=== PATIENT | male | born 1950 | race Caucasian/White ===

== ENCOUNTER 2020-02-04 14:19 | Outpatient (CLI) | payer MEDICARE, SELFPAY ==
--- NOTE | ~2020-02-04 | CT_ITS ---
EXAMINATION: CT lumbar spine wo con DATE: 02/04/2020 14:38 INDICATION: Low back pain. TECHNIQUE: Computed tomography (CT) of the lumbar spine was performed without intravenous contrast. A utomated exposure control and iterative reconstruction technique were employed. The dose-length produ ct was 445.69 mGy-cm. COMPARISON: Lumbar spine radiographs 01/30/2020 FINDINGS: Partially visualized are cysts in the kidneys measuring up to 2.2 cm on the left. Alignment is normal. Vertebral body heights are normal. There is moderately decreased disc height at L5-S1. Th e following disc levels are specifically discussed: L1-L2: The disc does not extend beyond the endplate margin. There is mild bilateral facet joint osteo arthritis. There is no neural foraminal stenosis. There is no central canal stenosis. L2-L3: The disc does not extend beyond the endplate margin. There is moderate bilateral facet joint o steoarthritis. There is no neural foraminal stenosis. There is no central canal stenosis. L3-L4: The disc is bulging. There is mild right and moderate left facet joint osteoarthritis. There i s mild bilateral neural foraminal stenosis. There is mild central canal stenosis. L4-L5: The disc is bulging. There is severe right and moderate left facet joint osteoarthritis. There is mild bilateral neural foraminal stenosis. There is mild central canal stenosis. L5-S1: The disc is bulging. There is moderate bilateral facet joint osteoarthritis. There is mild rig ht and moderate left neural foraminal stenosis. There is mild central canal stenosis. IMPRESSION: 1. Moderate lumbar spondylosis. Reviewed, dictated and finalized at location E.
== END 2020-02-04 14:20 | disposition home or self-care (01) ==
PROVIDERS: PCP Internal Medicine; Visit Provider Orthopaedic Surgery
DX: M54.5 Low back pain (principal); M47.816 Spondylosis without myelopathy or radiculopathy, lumbar region
CPT/HCPCS: 72131

== ENCOUNTER 2024-10-11 01:24 | Day surgery (SDC) | payer MEDICARE, SELFPAY ==
[2024-09-27 14:39] VITALS: BMI 25.0
--- NOTE | 2024-10-10 15:02 | P.PNAN_ITS ---
Anes - Initial Pre Proc Eval Procedure: Operation Date: 10/11/24 09:30 Proposed Procedures p Screening Colonoscopy - Colin Marinelli MD Date/Time: 10/10/24 15:02 Surgeon: Colin Marinelli MD Pre Op Diagnosis: personal hx colon polyps Patient Data Age: 74 Gender: M Height: 1.7 m Weight: 72.6 kg Allergies Allergy/AdvReac Type Severity Reaction Status Date / Time No Known Allergies Allergy Verified 10/11/24 08:18 Home Medications ?Medication ?Instructions ?Recorded ?Confirmed ?Type citalopram 20 mg tablet 20 mg PO DAILY 01/30/20 10/11/24 History rosuvastatin 20 mg tablet 20 mg PO DAILY 01/30/20 10/11/24 History acetaminophen 650 mg 650 mg PO Q12H 02/13/20 10/11/24 History tablet,extended release (Tylenol Arthritis Pain) Patient hx anesthesia problems: none Family hx anesthesia problems: none Results Review: All pre-operative results and documents have been reviewed as part of the pre- operative evaluation. [facility] Past Medical History Medical History (Updated 10/10/24 @ 15:03 by Balta Gasca DO) Anxiety Hyperlipidemia Surgical History Surgical History H/O knee surgery 1997 and 2008 [place] - waiting on records for details Family History Family History Father Cancer Social History Social History (Updated 10/11/24 @ 08:53 by Balta Gasca DO) Smoking packs per day: 1 Smoking cigarettes per day: 20.0 Years smoked: 30 Smoking pack-years: 30.00 Smoking status: Former smoker Tobacco type: cigarettes Additional smoking assessment comments: quit 35 years ago Alcohol intake: never Alcohol use details: occasional Substance use: never Substance use type: does not use Living arrangements: with family Additional living arrangements comments: , helen Occupation/Education: retired Gender identity (if verbalized by the patient): Male Spiritual care concerns: No Anes - Eval Final PreProcedure Day of Procedure 10/10/24 15:02 Patient weight: overweight Heart: regular rate and rhythm Lungs: clear to auscultation Airway: Mallampati scale class II Neurological: alert and oriented Last oral intake: >/= 8 hours ASA classification: II Emergent: no Anesthetic plan: proceed Anesthesia type and monitoring: general GIVS and standard monitoring Results Review: All pre-operative results and documents have been reviewed as part of the pre- operative evaluation. Informed Consent: The patient's anesthetic plan and its attendant risks and benefits were discussed with the patient/family/POA. Questions were solicited and answers provided to the satisfaction of the patient/family/POA.
[2024-10-11 08:19] VITALS: BP 147/79; PULSE 71; RESP 18; TEMP 36.4; O2SAT 99; BMI 24.5
[2024-10-11] MEDS: LACTATED RINGERS 1,000 ML 150 ML IV CONT (08:28)
--- NOTE | 2024-10-11 09:43 | PM.IMHP ---
H&P: HPI History of Present Illness Date/Time: 10/11/24 09:43 Chief Complaint: History of colon polyps Narrative: The patient has a history of colonic polyps, the last colonoscopy was 5 years ago. in addition, his father had colorectal cancer at age 70. Review of Systems Review of Systems: All systems reviewed & are unremarkable except as noted in HPI and below PMFSH Past Medical History Medical History (Updated 10/11/24 @ 09:44 by Colin Marinelli MD) Anxiety Hyperlipidemia Surgical History Surgical History H/O knee surgery 1997 and 2008 [place] - waiting on records for details Family History Family History Father Cancer Social History Social History (Updated 10/11/24 @ 08:53 by Balta Gasca, ) Smoking packs per day: 1 Smoking cigarettes per day: 20.0 Years smoked: 30 Smoking pack-years: 30.00 Smoking status: Former smoker Tobacco type: cigarettes Additional smoking assessment comments: quit 35 years ago Alcohol intake: never Alcohol use details: occasional Substance use: never Substance use type: does not use Living arrangements: with family Additional living arrangements comments: , [place] Occupation/Education: retired Gender identity (if verbalized by the patient): Male Spiritual care concerns: No Meds Home Medications and Allergies Home Medications ?Medication ?Instructions ?Recorded ?Confirmed ?Type citalopram 20 mg tablet 20 mg PO DAILY 01/30/20 10/11/24 History rosuvastatin 20 mg tablet 20 mg PO DAILY 01/30/20 10/11/24 History acetaminophen 650 mg 650 mg PO Q12H 02/13/20 10/11/24 History tablet,extended release (Tylenol Arthritis Pain) Allergies Allergy/AdvReac Type Severity Reaction Status Date / Time No Known Allergies Allergy Verified 10/11/24 08:18 Vital Signs Vital Signs - 24 hr 10/11/24 08:19 Temperature 97.6 F Pulse Rate 71 Respiratory Rate 18 Blood Pressure 147/79 H Pulse Oximetry 99 Oxygen Delivery Room Air Exam Const: General: cooperative and healthy appearing Resp: Effort & Inspection: normal respiratory effort and able to speak in complete sentences Auscultation: clear to auscultation bilaterally Cardio: Rate: regular rate Rhythm: regular rhythm GI: Inspection: normal to inspection GI Palp: No No hepatosplenomegaly present Auscultation: normal bowel sounds Rectal Exam: deferred Skin: General skin exam: normal color Psych: Appearance: grossly normal Mental Status: mental status grossly normal Assessment and Plan Assessment and plan (1) History of colonic polyps: Code(s): Z86.0100 - Personal history of colon polyps, unspecified Status: Acute (2) Family history of colon cancer: Code(s): Z80.0 - Family history of malignant neoplasm of digestive organs Status: Acute Assessment and Plan: The patient is deemed a good candidate for the procedure. Consent signed. Will proceed.
[2024-10-11 10:01] VITALS: BP 113/66; PULSE 62; RESP 15; O2SAT 97
[2024-10-11 10:11] VITALS: BP 120/78; PULSE 61; RESP 21; O2SAT 99
[2024-10-11 10:21] VITALS: BP 140/86; PULSE 61; RESP 18; O2SAT 100
--- OUTSIDE RECORDS SUMMARY | 2024-10-12 03:46 | XMS_ITS | Data Portability ---
Author Organization [facility], Main Office Address [address] [place] [address] Care Team Providers Care Therapeutic Consultant Name Role Phone ALY STARKEY Primary Care Provider Assessment Encounter Date Assessment Date Assessment LastModified by Organization Details LastModified Time 11/18/2022 11/18/2022 Tzsn-rym-kvgqckt medicines for his rhinitis Rosuvastatin and diet Citalopram continue Follow-up in 6 months Blood work ordered [email or web address] Not available 12/26/2022 16:17:28 06/09/2023 06/09/2023 Continue current therapy wellness completed screenings discussed ordered and immunizations were appropriate patient follow-up 6 months continue [email or web address] Not available 06/09/2023 22:48:29 Plan of Treatment Reminders Order Date Submit Date Provider Last Modified By Organization Details Last Modified Time Details Appointments None recorded. Lab PSA, serum or plasma 2022 023 [facility], [address] [facility], [facility] [address], [place], [address], 3 08:50:20 CMP, serum or plasma 2022 023 [facility], [address] [facility], [address], [place], [address], 3 08:50:19 lipid panel, serum 2022 023 [facility], [address] [facility], [address], [place], [address], 3 08:50:19 Referral None recorded. Procedures None recorded. Surgeries None recorded. Imaging None recorded. Medication Orders citalopram 20 mg tablet 2022 023 [email or web address] [id number], [address], [place], [place], [id number], 18:04:39 rosuvastati n 20 mg tablet 2022 023 [email or web address] [facility] #[id number], [address], [place], [place], [id number], 18:04:39 Patient TargetsNo targets recorded. Patient Instructions Encounter Date Encounter Id Patient Instructions Last Modified By Organization Details Last Modified Time 06/09/2023 [id number] dementia rating scale-2* [email or web address] Not available 06/09/2023 22:48:52 depression screening* Not available 06/09/2023 22:48:52 alcohol misuse* Not available 06/09/2023 22:48:52 multi-dimensiona l health assessment questionnaire* Not available 06/09/2023 22:48:52 Personalized [facility] lth Plan and Screening Recommendations Advance Directives - Do you have one? Yes Advance Directives - Do we have your advance directive on file in your health record? Primary Prevention/Interven tion (prevents or decreases the chance of common diseases from occurring) Smoking Risk: Non Smoker Alcohol Misuse Screening: Negative Weight: Appropriate Physical activity: Appropriate physical activity Nutrition: Good Average Refer to attached handout Heart-Healthy Diet: After Your Visit Fall Risk (screened today): Low Vaccines Pneumococcal: Ordered Recommended today Influenza: Chronic Disease Risks Stroke: Low Risk Intermediate Risk Heart Attack: Low risk Intermediate Risk Clogging of the Arteries: Low risk Intermediate Risk Diabetes: Low Risk I have no recommendations Secondary Prevention/Interven tion (detects treatable diseases before they may cause symptoms, disability, or ) Prostate Cancer Screening: Colon Cancer Screening: Colonoscopy Date Screening Last Performed: 09/05/19 with repeat recommendation for 5 years Eye Disease Screening: Dementia Risk: Low I have no recommendations Depression Screening: Negative Not available 06/09/2023 14:52:19 Reason for Referral None Reported. Results Created Date Observation Date Name Description Value Unit Range Abnormal Flag Note LastModifiedBy Organization Detail LastModifiedTime 11/20/19 XR, lumba r spine [facility] [address] [place] [address] [phone] Shayna cheney Name: MALACHI MORSE Access ion #: [id number] Sex: M : 1949 6 Locati on: RA2 Attend ing Physic audrey: GEOVANNI STARKEY Orderi Physic audrey: GEOVANNI STARKEY Exam Date: 11/20/19 1:31 PM Exam Name: XR L SPINE 4V+ Admitt ing Diagno sis(es ): RADIOL OGY REPORT - FINAL EXAM: XR L SPINE 4V+ HISTOR Y: LBP COMPAR OBINNA: None availa ble. TECHNI QUE: AP, bilate ral obliqu e's, latera l, and coned latera l views of the lumbar sacral juncti on. FINDIN GS: Examin ation of the lumbar spine demons trates multip le multil evel degene rative change s throug hout the lumbar spine. Mild sclero sis of the right greate r than left SI joint correl ate for histor y of sacroi liitis . 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 Bony pedicl es appear intact . There is no radiog raphic eviden ce of spondy lolysi s Page 1 of 2 [facility] Shayna cheney Name: MALACHI MORSE Access ion #: [id number] Sex: M : 1949 4 Exam Date: 11/20/19 1:31 PM Exam Name: XR L SPINE 4V+ Admitt ing Diagno sis(es ): or spondy lolist hesis. The sacral iliac joints appear normal . There is no fractu re or bone destru ction identi fied. If clinic al sympto ms persis t, MRI examin ation could be consid ered. IMPRES ROSEANN: No acute proces s, see above. Create d and electr onical ly signed by: Neymar mandujano MD Signed Date: 11/20/19 1:56 PM (CT) Dictat ed by: Neymar mandujano MD (CT) (CT) Page 2 of 2 [id number] [facility] (Imaging) [address] [place], [address], 11/17/2022 06:08:16 Result Notes None recorded. Problems Name Problem SNOMED Code Status Onset Date Resolution Date Notes Provider Name and Address Organization Details Recorded Time Renewal of prescription Active 2021 Not Available [facility] 3 06:01:56 Hypercholeste rolemia 35667425 Active 2018 Not Available [facility] 3 06:01:56 Long-term drug therapy Active 2021 Not Available [facility] 3 06:01:57 Adult health examination Active 2021 Not Available [facility] 3 06:01:57 Low back pain 407348536 Active 2021 Not Available [facility] 3 06:01:57 Screening for disorder Active 2021 Not Available [facility] 3 06:01:57 Anxiety 70559377 Active 2018 Not Available [facility] 3 06:01:57 Problem Notes None recorded. Procedures Surgical History Date Name Laterality Status Provider Name and Address Organization Details Recorded Time 06/09/20 Medicare Wellness CPT Code, subsequent completed Jasmyne Naidu RN [facility] 06/09/2023 14:44:50 05/12/20 excision of squamous cell carcinoma completed Not Available [facility] 11/17/2022 05:56:43 09/05/20 19 Colonoscopy completed Not Available [facility] 11/18/19 05:56:43 repair of meniscus completed Not Available [facility] 11/17/2022 05:56:43 repair of meniscus completed Not Available [facility] 11/17/2022 05:56:43 Imaging Results Imaging Date Name Status LastModified by Organiz [facility] Details LastModified Time 11/19/2021 XR, lumbar spine completed [id number] [facility] (Imaging) [address], [place], [address], 11/17/2022 06:08:16 Procedure Notes None recorded. Medical Equipment None Reported. Allergies No known drug allergies Medications Name Sig Start Date Stop Date Status Note LastModified by Organization Details LastModified Time azithromyci n 250 mg tablet 01/09 completed Not Available Not Available Not Available Tylenol Arthritis Pain 650 mg tablet,exte nded release 2019 active Not Available Not Available Not Avai lable citalopram 20 mg tablet TAKE 1 TABLET BY MOUTH EVERY DAY 2022 active Not Available Not Available Not Avai lable pravastatin 80 mg tablet Take 1 tablet every day by oral route for 90 days. 07/30 completed Not Available Not Available Not Available benzonatate 100 mg capsule TAKE 1 CAPSULE EVERY 8 HOURS FOR 10 DAYS 01/09 completed Not Available Not Available Not Available hydrocortis one 2.5 % topical cream 11/18 completed Not Available Not Available Not Available codeine 10 mg-guaifene sin 100 mg/5 mL oral liquid TAKE 1 OR 2 TEASPOONF ULS BY MOUTH TWICE DAILY NEEDED 01/09 completed Not Available Not Available Not Available amoxicillin 875 mg-potassiu m clavulanate 125 mg tablet 01/09 completed Not Available Not Available Not Available rosuvastati n 20 mg tablet TAKE 1 TABLET BY MOUTH EVERY DAY 2022 active Not Available Not Available Not Avai lable ProAir HFA 90 mcg/actuati on aerosol inhaler active Not Available Not Available Not Available Suprep Bowel Prep Kit 17.5 gram-3.13 gram-1.6 gram oral solution TAKE DIRECTED ON PACKAGE 04/24 completed Not Available Not Available Not Available Fluzone High-Dose 0662-2507 (PF) 180 mcg/0.5 mL intramuscul ar syringe 01/09 completed Not Available Not Available Not Available Fluzone High-Dose (PF) 180 mcg/0.5 mL intramuscul ar syringe 07/17 completed Not Available Not Available Not Available Fluzone High-Dose Quad 2019- (PF) 240 mcg/0.7 mL IM syringe 10/23 completed Not Available Not Available Not Available Vitals Date Recorded Body mass index (BMI) Body height Heart rate Body temperature Body weight Systolic blood pressure Diastolic blood pressure Provider Name and Address Organization Details Last Updated DateTime 1 24.9 kg/m2 170.18 cm 72 /min 97.5 [degF] 34517.1 9 g 120 mm[Hg] 64 mm[Hg] Not Available [facility] 3 06:00:55 Date Recorded Body mass index (BMI) Body height Heart rate Body temperature Body weight Systolic blood pressure Diastolic blood pressure Provider Name and Address Organization Details Last Updated DateTime 2 25.1 kg/m2 170.18 cm 72 /min 97.3 [degF] 28694.7 8 g 130 mm[Hg] 62 mm[Hg] Not Available [facility] 3 06:00:55 Date Recorded Body mass index (BMI) Body height Heart rate Body temperature Body weight Systolic blood pressure Diastolic blood pressure Provider Name and Address Organization Details Last Updated DateTime 2 24.6 kg/m2 170.18 cm 71 /min 98 [degF] 22535 g 122 mm[Hg] 68 mm[Hg] Not Available [facility] 3 06:00:56 Date Recorded Body height Body mass index (BMI) Body weight Body temperature Heart rate Systolic blood pressure Diastolic blood pressure Provider Name and Address Organization Details Last Updated DateTime 3 170.18 cm 25.4 kg/m2 81171.9 6 g 98.5 [degF] 66 /min 130 mm[Hg] 78 mm[Hg] [facility] 3 14:06:36 Date Recorded Body height Body mass index (BMI) Body weight Body temperature Heart rate Systolic blood pressure Diastolic blood pressure Provider Name and Address Organization Details Last Updated DateTime 3 170.18 cm 24.6 kg/m2 33027 g 98.5 [degF] 72 /min 128 mm[Hg] 70 mm[Hg] [facility] [employer] [facility] 3 14:36:09 Social History Question Answer Notes LastModified by Organization Details LastModified Time Tobacco Smoking Status Former Smoker quit age 38 Not Available [facility] 11/17/2022 05:56:23 Do You Have An Advance Directive? Yes MIGRATION.030 [id number] Information not available 11/17/2022 What Is Your Level Of Alcohol Consumption? Occasional MIGRATION.030 323348 Information not available 11/17/2022 Are You Blind Or Do You Have Difficulty Seeing? No MIGRATION.030 152708 Information not available 11/17/2022 What Is Your Level Of Caffeine Consumption? Moderate MIGRATION.030 286754 Information not available 11/17/2022 In The 14 Days Before Symptom Onset, Have You Had Close Contact With A Laboratory-confi rmed COVID-19 While That Case Was Ill? No MIGRATION.030 018243 Information not available 11/17/2022 In The 14 Days Before Symptom Onset, Have You Had Close Contact With A Person Who Is Under Investigation For COVID-19 While That Person Was Ill? No MIGRATION.030 382593 Information not available 11/17/2022 Are You Currently Employed? No Retired Information not available 11/18/2022 Are You Deaf Or Do You Have Serious Difficulty Hearing? No MIGRATION.030 774099 Information not available 11/17/2022 What Type Of Diet Are You Following? REGULAR MIGRATION.030 494494 Information not available 11/17/2022 What Is The Highest Grade Or Level Of School You Have Completed Or The Highest Degree You Have Received? [id number] MIGRATION.300026 Information not available 11/17/2022 Have There Been Any Changes To Your Family Or Social Situation? No MIGRATION.030 543215 Information not available 11/17/2022 What Is The Fluoride Status Of Your Home? Unknown MIGRATION.030 689847 Information not available 11/17/2022 When Did You Quit Smoking? 14+yearssincelastc igarette MIGRATION.030 334290 Information not available 11/17/2022 Are There Any Guns Present In Your Home? No MIGRATION.030 935852 Information not available 11/17/2022 Do You Use Insect Repellent Routinely? Yes Information not available 06/09/2023 Where Do You Live? SingleLevelHouse MIGRATION.030 568645 Information not available 11/17/2022 Presence Of Domestic Violence No Information not available 06/09/2023 Guns Present In The Home? No Information not available 06/09/2023 Are You Able To Care For Yourself? Yes Information not available 06/09/2023 Are You Blind Or Do Yo Have Difficulty Seeing? No Information not available 06/09/2023 Are You Deaf Or Do You Have Serious Difficulty Hearing? No Information not available 06/09/2023 General Stress Level? Low Information not available 06/09/2023 Live Alone Of With Others? With Others [email or web address] Information not available 06/09/2023 Do You Have A Medical Power Of Health Technician Hearing? Yes MIGRATION.0301 [id number] Information not available 11/17/2022 What Was The Date Of Your Most Recent Tobacco Screening? 06/09/2023 Information not available 06/09/2023 Have You Ever Been Counseled For Unhealthy Alcohol Use? No MIGRATION.0301 621582 Information not available 11/17/2022 Do You Have Any Pets? Yes MIGRATION.0301 960746 Information not available 11/17/2022 What Is Your Relationship Status? MIGRATION.0301 474329 Information not available 11/17/2022 Do You Use Your Seat Belt Or Car Seat Routinely? Yes MIGRATION.0301 574074 Information not available 11/17/2022 Do You Have Smoke And Carbon Monoxide Detectors In Your Home? Yes MIGRATION.0301 537776 Information not available 11/17/2022 Are You Passively Exposed To Smoke? No MIGRATION.0301 499002 Information not available 11/17/2022 Are There Any Smokers In Your House? No MIGRATION.0301 918469 Information not available 11/17/2022 What Types Of Sporting Activities Do You Participate In? Golf MIGRATION.0301 588625 Information not available 11/17/2022 Do You Feel Stressed (tense, Restless, Nervous, Or Anxious, Or Unable To Sleep At Night)? IX3638-5 MIGRATION.0301 087892 Information not available 11/17/2022 Do You Use Any Illicit Or Recreational Drugs? No MIGRATION.0301 049176 Information not available 11/17/2022 Do You Use Sunscreen Routinely? Yes MIGRATION.0301 258506 Information not available 11/17/2022 Has Tobacco Cessation Counseling Been Provided? No MIGRATION.0301 502398 Information not available 11/17/2022 Have You Recently Traveled Abroad? No MIGRATION.0301 730426 Information not available 11/17/2022 Do You Have Any Dietary Restrictions? No MIGRATION.0301 815299 Information not available 11/17/2022 Do You Or Have You Ever Used Any Other Forms Of Tobacco Or Nicotine? No MIGRATION.0301 489251 Information not available 11/17/2022 Sex: Male Functional Status Question Answer Note LastModified by Organizat [employer] Details LastModified Time Do you have difficulty walking or climbing stairs? No MIGRATION.2287405 026 Information not available 11/17/2022 Do you have transportation difficulties? No MIGRATION.3127414 026 Information not available 11/17/2022 Are you able to walk? YESWOREST MIGRATION.6001677 026 Information not available 11/17/2022 Do you have difficulty doing errands alone? No MIGRATION.7458180 026 Information not available 11/17/2022 Are you able to care for yourself? Yes MIGRATION.9916660 026 Information not available 11/17/2022 Do you have difficulty dressing or bathing? No MIGRATION.2829428 026 Information not available 11/17/2022 What is your exercise level? Moderate MIGRATION.0513255 026 Information not available 11/17/2022 Mental Status Question Answer Note LastModified by Organizat ion Details LastModified Time Do you have difficulty concentrating, remembering or making decisions? No MIGRATION.[id number] 6 Information not available 11/17/2022 Family History Relationship Description Onset Age of this Age Resolved Age Notes LastModified by Organization Details LastModified Time Father Alzheimer's disease MIGRATION.663 [id number] Not available 11/17/2022 05:56:47 Father Malignant tumor of colon MIGRATION.246 [id number] Not available 11/17/2022 05:56:47 Medical History Condition Response BLINDNESS N NERVE DISEASE N RHEUMATIC FEVER N BLADDER PROBLEMS N KIDNEY STONES N MRSA N OTHER # 1 N POLIO N LUNG DISEASE/DISORDER N HISTORY OF DRUG ABUSE N RADIATION / CHEMOTHERAPY N COPD N Other # 2 N BLOOD DISEASES N EAR OR HEARING PROBLEMS N MUMPS N SHINGLES N DEPRESSION (INCLUDING POST ) N BOWEL PROBLEMS N STROKE/TIA N ULCERS N BENIGN PROSTATIC HYPERPLASIA N MEASLES N HYPOTENSION N MYOCARDIAL INFARCTION N OBESITY N GERD/NAUSEA N ANEURYSM N URINARY/BLADDER/KIDNEY PROBLEMS N CORONARY ARTERY DISEASE (CAD) N ADDICTION CONCERNS N ENDOMETRIOSIS N Impotence N USE OF BLOOD THINNERS N SKIN PROBLEMS N GASTROINTESTINAL DISORDER N PERIPHERAL VASCULAR DISEASE N MUSCLE,JOINT OR BONE PROBLEMS N GASTROINTESTINAL BLEEDING N BLOOD CLOTS N ASTHMA N CATARACTS N ERECTILE DYSFUNCTION N VARICOSITIES N GI PROBLEMS N Low Testosterone N INFERTILITY N AIDS/HIV N CHEMOTHERAPY / RADIATION N LIVER DISEASE N MALE HYPOGONADISM N HYPERTENSION N Deficiency N TOURETTE'S N ANXIETY DISORDER Y BLOOD TRANSFUSION N ANEMIA/BLOOD DISORDER N CHRONIC EAR INFECTIONS N BRONCHITIS N TUBERCULOSIS N GLAUCOMA N FOOT PROBLEM N DIVERTICULITIS N CHICKENPOX N SLEEP APNEA N INFECTIOUS DISEASE N HEART ARRHYTHMIA N PROSTATE N INSOMNIA N HIGH CHOLESTEROL / HYPERLIPIDEMIA Y HYPERTHYROIDISM N EYE PROBLEMS N EDEMA N CHRONIC PAIN SYNDROME N HYPOTHYROIDISM N CAROTID BLOCKAGE N CONSTIPATION N BACK / NECK PROBLEMS N HAVE YOU BEEN HOSPITALIZED OR SEEN IN THE MEDICAL CENTER IN THE PAST YEAR ? N ATHEROSCLEROSIS N BREAST PROBLEMS N DIALYSIS N ECZEMA N OSTEOPOROSIS N ARTHRITIS N APPENDICITIS N DIABETES, TYPE N BAD TEETH N ENT N HEARTBURN / REFLUX N AUTISM SPECTRUM DISORDER (ASD) N HEPATITIS / LIVER DISEASE N GOUT N SLEEP DISORDER N ALZHEIMER'S DISEASE N Brain Problems N HERPES N DEMENTIA N HEADACHES/MIGRAINES N SEIZURES/EPILEPSY N VASCULAR DISEASE N PACEMAKER N Blood Disorder N DIZZINESS N HEART DISEASE/HEART PROBLEMS N KIDNEY DISEASE N MULTIPLE SCLEROSIS N CARDIAC ARRHYTHMIA N CANCER: SPECIFY Y ATRIAL FIBRILLATION N Gall Stones N PULMONARY EMBOLISM N AUTOIMMUNE DISEASE N Immunizations Vaccine Type Date Status Note Provider Nam e and Address Organization Details Recorded Time COVID-19, mRNA, LNP-S, PF, 30 mcg/0.3 mL dose 12/04/2020 completed Not Available [facility] 3 06:07:56 COVID-19, mRNA, LNP-S, PF, 30 mcg/0.3 mL dose 11/06/2020 completed Not Available [facility] 3 06:07:56 Influenza, high-dose, quadrivalent, PF 07/14/2020 completed Not Available [facility] 3 06:07:56 Influenza, high-dose, trivalent, PF 06/29/2019 completed Not Available [facility] 2022 06:07:56 Past Encounters Encounter ID Performer Location Encounter Start Date Encounter Closed Date Diagnosis/Indication Diagnosis SNOMED-CT Code Diagnosis ICD10 Code Diagnosis Note [id number] [facility] Internal Med Jus shankar [address] [place] [address] [place] [address] 05/28/2021 00:00:00 05/28/2021 15:09:20 [id number] [facility] Internal Med Jus shankar [address] [place] [address] jeana [address]uber, [place] [address] 11/19/2021 00:00:00 12/05/2021 16:14:33 [id number] [facility] Internal Med Jus shankar [address] [place] [address] [place] [address] 05/20/2022 00:00:00 06/05/2022 16:08:28 [id number] Aly Starkey MD [facility] Internal Med Jus shankar [address] [place] [address] y , [place] [address] 11/18/2022 13:54:37 11/18/2022 14:32:48 Hypercholesterolemia 18851961 E78.00 Screening for malignant neoplasm of prostate 059344007 Z12.5 Anxiety 64853844 F41.9 [id number] Aly Starkey MD [facility] Internal Med Jus shankar [address] [place] [address] [place] [address] 06/09/2023 14:28:17 06/09/2023 15:31:59 Renewal of prescription 595957310 Z76.0 [facility] th examination 442662880 Z00.00 Screening for disorder 203492350 Z13.9 Anxiety 02891275 F41.9 Hypercholesterolemia 136 51543 E78.00 Health Concerns Section Related Observation LastModified by Organization Detai ls LastModified Time None Recorded Concern Status LastModified by Organization Details LastModified Time None Recorded Advance Directives Directive Y: Payers Encounter Date Sequence Insurance Name Policy Number Policy Musa Covered Member ID Musa Member ID Guarantor Name 11/18/2022 1 [facility] (MEDICARE REPLACEMENT/A DVANTAGE - PPO) [id number] Malachi Rush [id number] Malachi Rush 06/09/2023 1 [facility] (MEDICARE REPLACEMENT/A DVANTAGE - PPO) [id number] Malachi Rush [id number] Malachi Rush Notes Date Note Type Note Provider Name and Address Organization Details Recorded Time 3 text/html anxiety doing well on currenttherapy no SI or HIhyperlipidemia taking rosuvastatinrhinitis bothers him from time to time Aly Starkey MD [address], [place], [address], [employer] 12/26/2022 16:18:46 3 text/html anxiety doing well on currenttherapy no SI or HIhyperlipidemia taking rosuvastatinrhinitis bothers him from time to time Aly Starkey MD [address], [place], [address], [employer] 06/09/2023 22:48:55
== END 2024-10-11 10:32 | disposition home or self-care (01) ==
PROVIDERS: PCP Family Medicine; Visit Provider Internal Medicine Gastroenterology
PROC: 0DJD8ZZ Inspection of Lower Intestinal Tract, Via Natural or Artificial Opening Endoscopic (ICD-10-PCS; CPT 45378; principal; 2024-10-11 09:30)
DX: Z12.11 Encounter for screening for malignant neoplasm of colon (principal); K64.8 Other hemorrhoids; Z80.0 Family history of malignant neoplasm of digestive organs; Z86.0100 Personal history of colon polyps, unspecified; Z87.891 Personal history of nicotine dependence
CPT/HCPCS: G0105; J2003; J2704; J7120